=== PATIENT | female | born 1985 | race Caucasian/White ===

== ENCOUNTER 2017-08-26 11:47 | Inpatient (IN) | payer MEDICAID ==
[2017-08-26] MEDS ORDERED: Sodium Chloride 0.9% 1,000 ML IV ONE (12:50)
--- NOTE | 2017-08-26 13:08 | US ---
OB Ltd 1 or More Fetus INDICATION: position. FINDINGS: Single live IUP in aileen breech presentation. HEYDI measures 5 cm; the patient has ruptured membranes. Placenta is situated near the fundus. heart rate measures 139 bpm. IMPRESSION: Single live IUP in aileen breech presentation.
[2017-08-26] MEDS ORDERED: Ampicillin 2 GM in Sodium Chloride 0.9% 100 ML IV ONE (13:30)
[2017-08-26] MEDS ORDERED: Ondansetron 4 MG/2 ML SDV IVPUSH PRN (13:31)
[2017-08-26] MEDS ORDERED: Sodium Chloride 0.9% 10 ML Syringe FLUSH PRN (13:31)
--- NOTE | 2017-08-26 13:41 | PCM.LDHP ---
L&D History of Present Illness - General Date of Service: 08/26/17 Admit Problem/Dx: Patient Status Order with Admit Dx/Problem 08/26/17 13:31 Patient Status [ADT] Routine Admission Diagnosis/Problem Admission Diagnosis/Problem Rupture of membranes with delay of delivery Source of Information: Patient, RN Notes Reviewed History Limitations: Reports: No Limitations - History of Present Illness Introduction:: 32-year-old female presents to labor and delivery floor today with concern of rupture membranes she is 36-3/7 weeks intrauterine gestation she is a 6 para 3, 0, 1, 4. She has a known history of breech presentation was scheduled for a version next week GBS status is unknown the test was done however the results are unavailable at this time. Denies any nausea, vomiting, fevers, shortness of breath, chest pain, or GI symptomatology. 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 energy drinks 1-2. soda-none - Alcohol Use Days Per Week of Alcohol Use: 0 - Recreational Drug Use Recreational Drug Use: No H&P Review of Systems - Review of Systems: Review Of Systems: ROS reveals no pertinent complaints other than HPI. General: Reports: No Symptoms Pulmonary: Reports: No Symptoms Cardiovascular: Reports: No Symptoms Gastrointestinal: Reports: No Symptoms Genitourinary: Reports: No Symptoms L&D Exam - Exam Exam: See Below - Vital Signs Vital Signs: Last Vital Signs Temp 98.9 F 08/26/17 13:31 Pulse 63 08/26/17 13:31 Resp 18 08/26/17 13:31 BP 109/63 08/26/17 13:31 Pulse Ox 97 08/26/17 13:31 Weight: 72.121 kg - OB Specific Contraction Intensity: Mild Movement: Active Heart Tones: Present Presentation: Breech (Her ultrasound) - Taylor Score Taylor Score Cervix Position: Midposition Taylor Score Consistency: Soft Taylor Score Effacement: 31-50% Taylor Score Dilation: 3-4 cm Taylor Score Infant's Station: -2 Taylor Score Total: 7 - Exam General: Alert, Oriented HEENT: PERRLA, Conjunctiva Clear Neck: Supple, Trachea Midline Lungs: Clear to Auscultation, Normal Respiratory Effort Cardiovascular: Regular Rate, Regular Rhythm GI/Abdominal Exam: Soft, Non-Tender Extremities: Normal Inspection, Non-Tender Skin: Warm, Dry - Patient Data Lab Results Last 24 hrs: Laboratory Results - last 24 hr 08/26/17 08/26/17 08/26/17 Range/Units 11:57 11:58 12:15 WBC (4.5-11.0) K/uL RBC (3.30-5.50) M/uL Hgb (12.0-15.0) g/dL Hct (36.0-48.0) % MCV (80-98) fL MCH (27-31) pg MCHC (32-36) % Plt Count (150-400) K/uL Urine Color Yellow Urine Appearance Slightly cloudy Urine pH 7.0 (4.5-8.0) Ur Specific [place] 1.005 L (1.008-1.030) Urine Protein Negative (NEGATIVE) mg/dL Urine Glucose (UA) Normal (NEGATIVE) mg/dL Urine Ketones Negative (NEGATIVE) mg/dL Urine Occult Blood Negative (NEGATIVE) Urine Nitrite Negative (NEGATIVE) Urine Bilirubin Negative (NEGATIVE) Urine Urobilinogen Normal (NORMAL) mg/dL Ur Leukocyte Esterase Moderate (NEGATIVE) Urine RBC 0-5 (0-5) Urine WBC 40-50 H (0-5) Ur Epithelial Cells Moderate Amorphous Sediment Not seen Urine Bacteria Moderate Urine Mucus Few Membrane Rupture Positive H (NEGATIVE) Urine Opiates Screen Negative (NEGATIVE) Ur Oxycodone Screen Negative (NEGATIVE) Urine Methadone Screen Negative (NEGATIVE) Ur Propoxyphene Screen Negative (NEGATIVE) Ur Barbiturates Screen Negative (NEGATIVE) Ur Tricyclics Screen Negative (NEGATIVE) Ur Phencyclidine Scrn Negative (NEGATIVE) Ur Amphetamine Screen Negative (NEGATIVE) U Methamphetamines Scrn Negative (NEGATIVE) Urine MDMA Screen Negative (NEGATIVE) U Benzodiazepines Scrn Negative (NEGATIVE) U Cocaine Metab Screen Negative (NEGATIVE) U Marijuana (THC) Screen Negative (NEGATIVE) 08/26/17 Range/Units 12:26 WBC 16.1 H (4.5-11.0) K/uL RBC 4.24 (3.30-5.50) M/uL Hgb 13.2 (12.0-15.0) g/dL Hct 38.9 (36.0-48.0) % MCV 92 (80-98) fL MCH 31 (27-31) pg MCHC 34 (32-36) % Plt Count 239 (150-400) K/uL Urine Color Urine Appearance Urine pH (4.5-8.0) Ur Specific [place] (1.008-1.030) Urine Protein (NEGATIVE) mg/dL Urine Glucose (UA) (NEGATIVE) mg/dL Urine Ketones (NEGATIVE) mg/dL Urine Occult Blood (NEGATIVE) Urine Nitrite (NEGATIVE) Urine Bilirubin (NEGATIVE) Urine Urobilinogen (NORMAL) mg/dL Ur Leukocyte Esterase (NEGATIVE) Urine RBC (0-5) Urine WBC (0-5) Ur Epithelial Cells Amorphous Sediment Urine Bacteria Urine Mucus Membrane Rupture (NEGATIVE) Urine Opiates Screen (NEGATIVE) Ur Oxycodone Screen (NEGATIVE) Urine Methadone Screen (NEGATIVE) Ur Propoxyphene Screen (NEGATIVE) Ur Barbiturates Screen (NEGATIVE) Ur Tricyclics Screen (NEGATIVE) Ur Phencyclidine Scrn (NEGATIVE) Ur Amphetamine Screen (NEGATIVE) U Methamphetamines Scrn (NEGATIVE) Urine MDMA Screen (NEGATIVE) U Benzodiazepines Scrn (NEGATIVE) U Cocaine Metab Screen (NEGATIVE) U Marijuana (THC) Screen (NEGATIVE) Result Diagrams: 08/26/17 12:26 - Problem List (1) Aileen breech presentation SNOMED Code(s): 14455591 ICD Code: O32.1XX0 - MATERNAL CARE FOR BREECH PRESENTATION, UNSP Status: Acute Current Visit: Yes (2) Rupture of membranes with clear amniotic fluid SNOMED Code(s): 18908304 ICD Code: O42.019 - PRETRM VIKA ROM, ONSET LABOR W/N 24 HOURS OF RUPT, UNSP TRI Status: Acute Current Visit: Yes (3) Premature rupture of membranes (PROM) affecting sixth SNOMED Code(s): 22552615 ICD Code: O42.90 - VIKA ROM, 7TH0 BETW RUPT & ONST LABR, UNSP WEEKS OF GEST; O09.40 - SUPERVISION OF W GRAND MULTIPARITY, UNSP TRIMESTER Status: Acute Current Visit: Yes Problem List Initiated/Reviewed/Updated: Yes Orders Last 24hrs: Active Orders 24 hr Category Date Time Status Patient Status [ADT] Routine ADT 08/26/17 13:31 Ordered Heart Tones [RC] ASDIRECTED Care 08/26/17 13:31 Ordered OB Check [OM.PC] Click to Edit Care 08/26/17 11:57 Ordered Peripheral IV Care [RC] . DIRECTED Care 08/26/17 13:34 Ordered Procedure Site Prep Instruct [RC] ASDIRECTED Care 08/26/17 13:31 Ordered RT Incentive Spirometry [RC] PER UNIT ROUTINE Care 08/26/17 13:31 Ordered Vital Signs [RC] PER UNIT ROUTINE Care 08/26/17 13:31 Ordered TYPE AND SCREEN [BBK] Routine Lab 08/26/17 13:15 Received Ampicillin 1 gm Med 08/26/17 17:30 Active Sodium Chloride 0.9% [Normal Saline] 50 ml IV Q4H Ampicillin 2 gm Med 08/26/17 13:30 Active Sodium Chloride 0.9% [Normal Saline] 100 ml IV ONETIME Ondansetron [Zofran] Med 08/26/17 13:31 Ordered 4 mg IVPUSH Q4H PRN Pneumococcal Polyvalent-23 Vac [Pneumovax 23] Med 08/27/17 09:00 Once 0.5 ml IM .ONCE ONE Sodium Chloride 0.9% [Normal Saline] 1,000 ml Med 08/26/17 12:50 Active IV .BOLUS Sodium Chloride 0.9% [Saline Flush] Med 08/26/17 13:31 Ordered 10 ml FLUSH ASDIRECTED PRN Peripheral IV Insertion Adult [OM.PC] Routine Oth 08/26/17 13:31 Ordered Schedule Procedure [COMM] Per Unit Routine Oth 08/26/17 13:31 Ordered Resuscitation Status Routine Resus Stat 08/26/17 13:31 Ordered Medication Orders Sodium Chloride (Normal Saline) 1,000 mls @ 999 mls/hr IV .BOLUS ONE Stop: 08/26/17 13:50 Ampicillin Sodium 2 gm/ Sodium (Chloride) 100 mls @ 200 mls/hr IV ONETIME ONE Stop: 08/26/17 13:59 Last Admin: 08/26/17 13:26 Dose: 200 mls/hr Ampicillin Sodium 1 gm/ Sodium (Chloride) 50 mls @ 100 mls/hr IV Q4H JOSE ALEJANDRO Ondansetron HCl (Zofran) 4 mg IVPUSH Q4H PRN PRN Reason: Nausea/Vomiting Pneumococcal Polyvalent Vaccine (Pneumovax 23) 0.5 ml IM .ONCE ONE Stop: 08/27/17 09:01 Sodium Chloride (Saline Flush) 10 ml FLUSH ASDIRECTED PRN PRN Reason: Keep Vein Open Assessment/Plan Comment:: Assessment 32-year-old female intrauterine aileen breech presentation premature rupture membranes 36-3/7 weeks intrauterine gestation 6, para 4, 0, 1, 4 Plan Because of the rupture membranes and the unknown GBS status use provide prophylactic antibiotics of ampicillin plan to go to section today as soon as OR is available This note was dictated using [employer] voice recognition software please call with any questions.
[2017-08-26] MEDS ORDERED: Lidocaine 1% with EPINEPHrine 1:100,000 50 ML MDV ONE (14:28)
[2017-08-26] MEDS ORDERED: Bupivacaine 0.5% 50 ML MDV ONE (14:28)
[2017-08-26] MEDS ORDERED: fentaNYL 100 MCG/2 ML SDV ONE ×2 (15:44→16:00)
[2017-08-26] MEDS ORDERED: diphenhydrAMINE 50 MG/ML SDV IV PRN (15:49)
[2017-08-26] MEDS ORDERED: Lanolin 100% Cream 40 GM Tube TOP PRN (15:49)
[2017-08-26] MEDS ORDERED: Hydrocortisone 2.5% Crm 30 GM Tube TOP PRN (15:49)
[2017-08-26] MEDS ORDERED: Benzocaine 20% Top Spray 56 GM Bottle TOP PRN (15:49)
[2017-08-26] MEDS ORDERED: diphenhydrAMINE 50 MG/ML SDV IVPUSH PRN (15:49)
[2017-08-26] MEDS ORDERED: Naloxone 0.4 MG/ML SDV IVPUSH PRN (15:49)
[2017-08-26] MEDS ORDERED: Witch Hazel Medicated Pads 100/Jar TOP PRN (15:49)
[2017-08-26] MEDS ORDERED: ePHEDrine 50 MG/ML SDV IVPUSH PRN (15:49)
[2017-08-26] MEDS ORDERED: cefOXitin 2 GM Vial ONE (16:00)
[2017-08-26] MEDS ORDERED: Morphine 2 MG/ML Syringe IVPUSH PRN (16:00)
[2017-08-26] MEDS ORDERED: Oxytocin 10 Units/1 ML SDV ONE (16:00)
[2017-08-26] MEDS ORDERED: fentaNYL 250 MCG/5 ML SDV ONE (16:00)
[2017-08-26] MEDS ORDERED: ePHEDrine 50 MG/ML SDV ONE (16:00)
[2017-08-26] MEDS ORDERED: fentaNYL 100 MCG/2 ML SDV IVPUSH ONE (16:00)
[2017-08-26] MEDS: Acetaminophen/HYDROcodone 325-5 MG Tab PO PRN ×2 (16:23→20:32)
[2017-08-26] MEDS ORDERED: Sodium Chloride 0.9% 1,000 ML IV SCH (17:15)
[2017-08-26] MEDS ORDERED: Ampicillin 1 GM in Sodium Chloride 0.9% 50 ML IV SCH (17:30)
[2017-08-26] MEDS: Ketorolac 30 MG/ML SDV IVPUSH PRN ×2 (17:33→23:01)
[2017-08-27] MEDS ORDERED: Sodium Chloride 0.9% 1,000 ML IV SCH (01:03)
[2017-08-27] MEDS ORDERED: Sodium Chloride 0.9% 250 ML IV SCH (01:15)
[2017-08-27] MEDS: Acetaminophen/HYDROcodone 325-5 MG Tab PO PRN ×4 (01:28→18:01)
[2017-08-27] MEDS: Ketorolac 30 MG/ML SDV IVPUSH PRN ×3 (04:45→22:23)
[2017-08-27] MEDS: Prenatal Multivitamin with Calcium/Folic Acid/Iron Tab PO SCH (08:40)
[2017-08-27] MEDS ORDERED: Pneumococcal Polyvalent-23 Vaccine 0.5 ML SDV IM ONE (09:00)
--- NOTE | 2017-08-27 09:05 | PN ---
DATE OF SERVICE: 08/27/2017 SUBJECTIVE: The patient is doing well. Pain is well controlled. No nausea, vomiting, shortness of breath, or chest pain. OBJECTIVE: VITAL SIGNS: Stable. CARDIOVASCULAR: Regular rhythm and rate. RESPIRATORY: Lungs are clear to consultation bilaterally. SKIN: Incision is healing well. ASSESSMENT: Status post section. PLAN: The patient is now making adequate urine output. We will saline lock her. She is advancing on her diet. We will remove her Barron catheter. Her hemoglobin is greater than 9 and we will recheck this in a.m. Diet and activity to increase as well as highly encouraged today. Landon Suarez MD /[id number]
--- NOTE | 2017-08-27 11:44 | OR ---
DATE OF PROCEDURE: 08/26/2017 PROCEDURE: section with aftercare. COMPLICATIONS: None. MEDICAL FRONT DESK COORDINATOR: None. ANESTHETIC: Spinal. MEDICAL FRONT DESK COORDINATOR: Pritesh Parry M.D. RISKS: Risks, benefits, alternatives, and limitations including but not limited to infection, bleeding, injury to baby, bladder, intestines, chronic wounds, chronic pain, seroma, and hematoma formations were explained to the patient and wished to proceed. INDICATION: Breech baby. PROCEDURE IN DETAIL: The patient was placed in supine position. The abdomen was prepped and draped. This would be performed in a standard classic Pfannenstiel type procedure. A transverse incision was made approximately 8 cm in size. This was performed with a #15 blade and then carried down with electrocautery to the external oblique, which was also opened with electrocautery. The peritoneum was opened sharply with Metzenbaum scissors, no evidence of enterotomy or injury was noted during entry. A muscle splitting technique was then executed. The bladder flap was deflected inferiorly. A simple blade was used to retain this. The uterus was then opened bluntly using a mosquito dissector. The uterus was then opened using bandage scissors. The baby was delivered without any difficulty. The cord was cut and clamped. Pitocin was given. The uterus was delivered extracorporeally. The placenta was then delivered without difficulty. The uterus was inspected for any remnant material, which none was noted. Uterus would be closed in 3 layers of #1 Vicryl blunt running locking suture. No bleeding was noted after this. The abdomen was inspected for hematoma, which there was none, and was thoroughly irrigated. The rectus muscles were reapproximated after irrigation and removal of the irrigation. The fascia was then closed with #1 Vicryl running sutures x2. Subcutaneous tissues were irrigated and closed with 3-0 Vicryl, and the skin was closed with 4-0 Vicryl, and Dermabond was applied. The patient tolerated the procedure well. Landon Suarez MD /[id number]
[2017-08-28] MEDS: Ketorolac 30 MG/ML SDV IVPUSH PRN (05:40)
[2017-08-28] MEDS ORDERED: Ibuprofen 600 MG Tab PO PRN (07:40)
[2017-08-28] MEDS: Prenatal Multivitamin with Calcium/Folic Acid/Iron Tab PO SCH (08:21)
--- NOTE | 2017-08-28 09:46 | PN ---
DATE OF SERVICE: 08/28/2017 SUBJECTIVE: The patient doing very well. Pain is well controlled. No nausea, vomiting, shortness of breath, or chest pain. OBJECTIVE: VITAL SIGNS: Temperature 98, blood pressure 104/40, pulse 76, respirations 18, and 95% on room air. CARDIOVASCULAR: Regular rhythm and rate. RESPIRATORY: Lungs clear to consultation bilaterally. SKIN: Incision healing well. ASSESSMENT: Status post . PLAN: The patient will be discharged today. Her hemoglobin is now stable. We will continue to advance diet and activity. Please see discharge summary for further details. Landon Suarez MD /[id number]
--- NOTE | 2017-08-28 11:10 | DISCH ---
DISCHARGE DIAGNOSIS: Status post section. HOSPITAL COURSE: This is a pleasant 32-year-old female who underwent a section due to breech. The patient did well postoperatively. The patient had no nausea, vomiting, shortness of breath, or chest pain. FOLLOWUP: With Surgery in 7 to 14 days. ACTIVITY: No lifting greater than 30 pounds x30 days. DISCHARGE MEDICATIONS: Please see MAR, but include [place] for pain.
[2017-11-19 10:08] VITALS: BP 115/55
== END 2017-08-28 12:15 | disposition home or self-care (01) | DRG 766 ==
LOC: JP.OBCHECK 11:47 → JP.OB 12:28 → OBSVTOIN 14:47 → JP.MS 16:05
PROVIDERS: ADMIT Family Medicine; ATTEND Surgery
PROC: 10D00Z1 Extraction of Products of Conception, Low, Open Approach (ICD-10-PCS; principal; 2017-08-26)
DX: O32.1XX0 Maternal care for breech presentation, not applicable or unspecified (principal); O99.334 Smoking (tobacco) complicating childbirth; F17.210 Nicotine dependence, cigarettes, uncomplicated; Z3A.36 36 weeks gestation of pregnancy; Z37.0 Single live birth; O42.019 Preterm premature rupture of membranes, onset of labor within 24 hours of rupture, unspecified trimester
CPT/HCPCS: 36415; 59409; 76815; 76815-26; 80048; 80305; 81001; 84112; 85025; 85027; 86850; 86900; 86901; 88307; 99211; A9270-GY; J0290; J0694; J1885; J2270; J2590; J3010; J7030; J7040

== ENCOUNTER 2021-05-07 02:35 | Emergency (ER) | payer MEDICAID ==
[2021-05-07 02:57] VITALS: BP 127/86; PULSE 105
[2021-05-07] MEDS ORDERED: Ketorolac 60 MG/2 ML SDV IM ONE (03:17)
[2021-05-07] MEDS ORDERED: Bacitracin Oint 1 GM U/D Packet TOP ONE (03:56)
[2021-05-07] MEDS ORDERED: Lidocaine 1% with EPINEPHrine 1:100,000 50 ML MDV SUBCUT STA (03:56)
--- NOTE | 2021-05-07 03:58 | EDM.PDOC ---
ED HPI GENERAL MEDICAL PROBLEM - General Chief Complaint: Laceration Stated Complaint: RIGHT ARM CUT Time Seen by Provider: 05/07/21 03:10 Source of Information: Reports: Patient, RN Notes Reviewed History Limitations: Reports: No Limitations - History of Present Illness INITIAL COMMENTS - FREE TEXT/NARRATIVE: 36-year-old female presents emergency department today with lacerations to both anterior posterior portions of the right arm, she injured herself when she punched her fist through a piece of glass Right Posterior Arm Pain Score (Numeric/FACES): 10 - Related Data Allergies Allergy/AdvReac Type Severity Reaction Status Date / Time No Known Allergies Allergy Verified 05/07/21 02:57 Home Meds: Home Meds NK [No Known Home Meds] 05/07/21 [History] Past Medical History Respiratory History: Reports: Other (See Below) Other Respiratory History: pneumonia with bactremia 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: , 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 , Other (See Below) 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 LOADER 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: 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 Hematologic History: Reports: Blood Transfusion(s) Other Hematologic History: after miscarriage - Infectious Disease History Infectious Disease History: Reports: Chicken Pox Social & Family History - Tobacco Use Tobacco Use Status *Q: Current Every Day Tobacco User Years of Tobacco use: 20 Packs/Tins Daily: 1 - Caffeine Use Caffeine Use: Reports: Coffee, Energy Drinks, Soda - Alcohol Use Days Per Week of Alcohol Use: 3 Number of Drinks Per Day: 6 Total Drinks Per Week: 18 Date of Last Drink: 05/07/21 - Recreational Drug Use Recreational Drug Use: No ED ROS GENERAL - Review of Systems Review Of Systems: See Below Skin: Reports: Wound ED EXAM, SKIN/RASH Exam: See Below ED SKIN PROCEDURES - Laceration/Wound Repair Right Arm Appearance: Muscle, Linear Distal NVT: Neuro & Vascular Intact, No Tendon Injury Anesthetic Type: Local Local Anesthesia - Lidocaine (Xylocaine): 1% with EPI Local Anesthetic Volume: Other (6) Skin Prep: Saline Saline Irrigation (cc's): 60 Exploration/Debridement/Repair: Wound Explored, In a Bloodless Field, Explored to Base Closed with: Sutures Lac/Wound length In cm: 7 Suture Size: 3-0 # of Sutures: 1 Suture Type: Running Suture Size: 3-0 # of Sutures: 3 Repaired with: Vicryl Suture Size: 3-0 # of Sutures: 3 Repaired with: Vicryl Sterile Dressing Applied: Nurse Tetanus Status Addressed: Yes (2019) Complications: No Arm Appearance: Linear Distal NVT: Neuro & Vascular Intact, No Tendon Injury Anesthetic Type: Local Local Anesthesia - Lidocaine (Xylocaine): 1% with EPI Local Anesthetic Volume: 3cc Skin Prep: Saline Saline Irrigation (cc's): 30 Exploration/Debridement/Repair: Wound Explored, In a Bloodless Field, Explored to Base Closed with: Sutures Lac/Wound length In cm: 6 Suture Size: 3-0 # of Sutures: 1 Suture Type: Nylon, Running Suture Size: 3-0 # of Sutures: 2 Repaired with: Vicryl Sterile Dressing Applied: Nurse Tetanus Status Addressed: Yes Complications: No Course - Vital Signs Last Recorded V/S: Last Vital Signs Temp 97.8 F 05/07/21 02:53 Pulse 105 H 05/07/21 02:53 Resp 16 05/07/21 02:53 BP 127/86 05/07/21 02:53 Pulse Ox 97 05/07/21 02:53 - Orders/Labs/Meds Orders: Active Orders 24 hr Category Date Time Status Elbow 2V Rt [CR] Stat Exams 05/07/21 03:18 Taken Meds: Medications Discontinued Medications Generic Name Dose Route Start Last Admin Trade Name Freq PRN Reason Stop Dose Admin Bacitracin 2 dose 05/07/21 03:56 05/07/21 04:24 Bacitracin Oint 1 Gm U/D Packet TOP 05/07/21 03:57 2 dose ONETIME ONE Administration Ketorolac Tromethamine 60 mg 05/07/21 03:17 05/07/21 03:31 Ketorolac 60 Mg/2 Ml Sdv IM 05/07/21 03:18 60 mg ONETIME ONE Administration Lidocaine/Epinephrine 20 ml 05/07/21 03:56 05/07/21 04:24 Lidocaine 1% With Epinephrine 1:100,000 50 Ml Mdv SUBCUT 05/07/21 03:57 20 ml NOW STA Administration Departure - Departure Time of Disposition: 04:48 Disposition: Home, Self-Care 01 Condition: Fair Clinical Impression: Laceration of right upper arm Qualifiers: Encounter type: initial encounter Qualified Code(s): S41.111A - Laceration without foreign body of right upper arm, initial encounter - Discharge Information Instructions: Laceration Care, Adult Referrals: PCP,None [Primary Care Provider] - Forms: ED Department Discharge Additional Instructions: Follow wound care instruction sheet, suture removal in 10 days, follow-up with primary care or return to the emergency department for suture removal Sepsis Event Note (ED) - Evaluation Sepsis Screening Result: No Definite Risk - Focused Exam Vital Signs: Vital Signs Temp Pulse Resp BP Pulse Ox 05/07/21 02:53 97.8 F 105 H 16 127/86 97 - My Orders Last 24 Hours: My Active Orders 05/07/21 03:18 Elbow 2V Rt [CR] Stat - Assessment/Plan Last 24 Hours: My Active Orders 05/07/21 03:18 Elbow 2V Rt [CR] Stat Plan: Assessment Acuity = acute Site and laterality = 2 lacerations on the right arm one is 7 cm in length completely through the dermis into the subcutaneous with a laceration through the fascial layer superficially into the muscle, the second laceration is also on the arm 6 cm in length just into the subcutaneous fat Etiology = trauma with glass Manifestations = none Location of injury = Home Lab values = none Plan Suture removal in 10 days, follow-up with primary care return to the emergency department follow wound care instruction sheet This note was dictated using [employer] voice recognition software please call with any questions on syntax or grammar.
--- NOTE | 2021-05-07 11:12 | CR ---
Elbow 2V Rt CLINICAL HISTORY: Trauma FINDINGS: No acute fracture or dislocation is noted. The fat pads are in normal position Impression: Limited elbow study No fracture .
== END 2021-05-07 04:51 | disposition home or self-care (01) ==
LOC: JP.ED 02:35
DX: S41.111A Laceration without foreign body of right upper arm, initial encounter (principal); Z72.0 Tobacco use; W25.XXXA Contact with sharp glass, initial encounter
CPT/HCPCS: 12035; 73070; 96372; 99283; J1885

== ENCOUNTER 2024-12-02 18:09 | Emergency (ER) | payer MEDICAID ==
[2024-12-02 19:52] VITALS: BP 143/84; PULSE 69
[2024-12-02] MEDS: Bacitracin Oint 1 GM U/D Packet TOP ONE (21:20)
[2024-12-02] MEDS: Lidocaine 1% with EPINEPHrine 1:100,000 20 ML MDV INJECT ONE (21:20)
== END 2024-12-02 21:22 | disposition home or self-care (01) ==
LOC: JP.ED 18:09
DX: S61.216A Laceration without foreign body of right little finger without damage to nail, initial encounter (principal); F17.210 Nicotine dependence, cigarettes, uncomplicated; Z86.16 Personal history of COVID-19; W25.XXXA Contact with sharp glass, initial encounter
CPT/HCPCS: 12001; 99282